=== PATIENT | male | born 1990 | race Caucasian/White ===

== ENCOUNTER 2022-03-09 10:35 | Emergency (ER) | payer BC, SELFPAY ==
--- NOTE | ~2022-03-09 | CT_ITS ---
EXAMINATION: CTA chest PE protocol DATE: 03/09/2022 12:51 INDICATION: Shortness of breath, COVID 19 positive TECHNIQUE: Computed tomography angiography (CTA) of the chest was performed with 100 mL Omnipaque-350 intravenous contrast timed to evaluate the pulmonary arteries. Coronal maximum intensity projection 3D-reconstructions were created by the technologist. The dose-length product (DLP) was 605.33 mGy-cm. Automated exposure control and iterative reconstruction technique were employed. COMPARISON: None. FINDINGS: The pulmonary arteries are moderately well-opacified. No pulmonary embolism is identified. Respiratory motion artifact slightly limits evaluation in the lower lung zones. There is subtle, patc hy bilateral airspace opacities. No pleural effusion or pneumothorax. No pathologically enlarged thor acic lymph nodes are identified. The heart size is normal. Mild bilateral gynecomastia is noted. IMPRESSION: 1. No definite pulmonary embolus identified. Sensitivity in the lower lung zones limited by respirato ry motion. 2. Subtle patchy airspace opacities of the lungs, consistent with history of COVID 19. Reviewed, dictated and finalized at location L. IMPRESSION: 1. No definite pulmonary embolus identified. Sensitivity in the lower lung zone s limited by respiratory motion. 2. Subtle patchy airspace opacities of the lungs, consistent with history of CO VID 19.
--- NOTE | ~2022-03-09 | XR_ITS ---
EXAMINATION: XR chest 1V portable INDICATION: Dry cough TECHNIQUE: Portable AP chest at 1111 hours COMPARISON: None available FINDINGS: There are minimal airspace opacities of the lung bases.. No pleural effusion or pneumothora x. The cardiomediastinal silhouette is normal. The visualized bones and soft tissues are unremarkable . IMPRESSION: 1. Minimal bibasilar airspace opacity, consistent with atelectasis versus pneumonia. Reviewed, dictated and finalized at location L. IMPRESSION: 1. Minimal bibasilar airspace opacity, consistent with atelectasis versus pneum onia.
[2022-03-09 10:37] VITALS: BP 127/76; PULSE 77; RESP 16; TEMP 36.1; O2SAT 97
--- NOTE | 2022-03-09 10:50 | ECG_ITS ---
Measurements Intervals [place] Rate: 77 P: 31 MS: 138 QRS: 0 QRSD: 95 T: 31 QT: 353 QTc: 401 Interpretive Statements SINUS RHYTHM INCOMPLETE RIGHT BUNDLE BRANCH BLOCK BORDERLINE ECG Electronically Signed On 03-09-2022 11:40:20 CDT by Jorge Proctor D.O.
--- NOTE | 2022-03-09 10:59 | ED.GENADULT ---
HPI - General Adult General Chief complaint: Upper Respiratory Infection Stated complaint: COVID positive - unable to take a deep breath Time Seen by Provider: 03/09/22 10:46 Source: RN notes reviewed History of Present Illness HPI narrative: Patient presents emergency room from home for shortness of breath. Patient states that he feels that he occasionally has to take a deep breath to breathe and that is more difficult. States that the symptoms began this morning. States that he had a positive home COVID test 3 days ago and symptom onset of approximately 6 days ago. States he has had a mild cough has been nonproductive he denies any fevers or chills states he has had a sore throat denies any abdominal pain nausea vomiting Related Data Home Medications Medication Instructions Recorded Confirmed oxybutynin chloride 10 mg 10 mg PO BID 11/29/21 tablet,extended release 24 hr Allergies Allergy/AdvReac Type Severity Reaction Status Date / Time amoxicillin Allergy Unknown Unknown Verified 03/09/22 10:36 Review of Systems Review of Systems: Gen.: Denies fevers or chills ENT: Denies congestion Respiratory: See HPI CV: Denies chest pain or palpitations GI: Denies abdominal pain nausea, emesis or diarrhea Musculoskeletal: Denies back pain or muscle pain Neuro: Denies numbness, tingling, weakness or focal weakness Skin: Denies rash Except as documented, all other systems reviewed and negative [facility] Past Medical History Medical History (Updated 03/09/22 @ 13:22 by Gurmeet Fabian DO) COVID-19 Family History Family History Father Family history of thyroid disease Family history of elevated blood lipids Grandparent Diabetes mellitus Family history of osteoporosis Hypertension Family history of elevated blood lipids Family history of cardiovascular disease Cerebrovascular accident Family history of malignant neoplasm of breast in first degree relative Mother Family history of migraine headaches Social History Social History Smoking status: Never smoker Alcohol intake: current Exam Narrative: APPEARANCE: No acute distress, nontoxic, resting in bed EYES: EOMI HEENT: Normocephalic, atraumatic, RESPIRATORY: No respiratory distress Clear to auscultation bilaterally with no rhonchi wheezing or rales. CARDIOVASCULAR: Regular rate and rhythm without murmurs rubs or gallops. ABDOMINAL: Soft, nontender, nondistended, no rebound or guarding MUSCULOSKELETAl: Moves all extremities. No clubbing, cyanosis or edema. NEURO: Awake and alert. Following commands, speech normal, no focal deficits SKIN:: Warm, dry. No rashes lesions or abrasions PSYCHIATRIC: Normal affect/mood, Course Course Emergency Course: Patient able to get up and ambulate in ED with oxygen saturation staying within normal limits Discussed with patient results of workup and diagnosis. Discussed need for follow-up with primary care, proper use of medication, and reasons to return to the emergency department. Patient understands and agrees to current treatment plan Vital Signs Vital signs: Vital Signs Temperature 96.9 F L 03/09/22 10:37 Pulse Rate 77 03/09/22 10:37 Respiratory Rate 16 03/09/22 10:37 Blood Pressure 127/76 03/09/22 10:37 Pulse Oximetry 97 03/09/22 10:37 Oxygen Delivery Room Air 03/09/22 10:37 Temperature 97.7 F 03/09/22 11:33 Pulse Rate 58 L 03/09/22 12:30 Respiratory Rate 12 03/09/22 12:30 Blood Pressure 129/76 03/09/22 12:30 Pulse Oximetry 98 03/09/22 12:30 Oxygen Delivery Room Air 03/09/22 11:28 Medical Decision Making Vital Signs Vital Signs: Vital Signs Temperature 96.9 F L 03/09/22 10:37 Pulse Rate 77 03/09/22 10:37 Respiratory Rate 16 03/09/22 10:37 Blood Pressure 127/76 03/09/22 10:37 Pulse Oximetry 97 03/09/22 10:37 Oxygen Delivery
[2022-03-09 11:04] LABS: Basophils Percent Auto 0.5 % (0.2-1.2); Eosinophils Percent Auto 0.5 % (0-4.4); Hemoglobin 15.4 g/dL (14.0-18.0); Immature Granulocyte Absolute 0.02 K/mm3 (0.00-0.031); Immature Granulocyte Percent A 0.3 % (0-0.5); Lymphocytes Absolute Auto 1.11 K/mm3 (0.9-3.2); Lymphocytes Percent Auto 18.6 % (18.3-44.2); Mean Corpuscular Hemoglobin 29.3 pg (26-34); Mean Corpuscular Volume 83.7 fl (80-100); Mean Platelet Volume 9.7 fl (7.4-10.4); Monocytes Absolute Auto 0.5 K/mm3 (0.1-0.6); Neutrophils Absolute Auto 4.3 K/mm3 (1.3-6.7); Neutrophils Percent Auto 72.1 % (45.5-73.1); Platelet Count Result 209 k/mm3 (150-375); Red Blood Count 5.26 M/mm3 (4.6-6.20); Red Cell Distribution Width 13.6 % (11.5-14.5)
[2022-03-09 11:16] LABS: Alanine Aminotransferase 53 U/L (6-50); Albumin Level 4.7 g/dL (3.5-5.1); Alkaline Phosphatase 98 U/L (38-126); Anion Gap 11 mmol/L (8-16); Aspartate Amino Transferase 42 U/L (17-59); Blood Urea Nitrogen 12 mg/dL (9-20); Calcium 9.4 mg/dL (8.4-10.2); Carbon Dioxide 22 mmol/L (22-30); Chloride 108 mmol/L (98-107); Estimated CRCL calculation 149 ml/min; Estimated Glomerular Filt Rate > 60; Glucose 110 mg/dL (65-110); Potassium 3.9 mmol/L (3.4-5.0); Sodium 141 mmol/L (137-145)
[2022-03-09 11:28] VITALS: O2SAT 99
[2022-03-09 11:33] VITALS: TEMP 36.5
[2022-03-09 12:11] LABS: D Dimer 1.23 ug/mL (<0.48)
[2022-03-09 12:30] VITALS: BP 129/76; PULSE 58; RESP 12; O2SAT 98
--- NOTE | 2022-03-09 13:31 | PC.NURSE ---
walking oxygen 96% lowest value
[2022-03-09 13:33] VITALS: BP 137/80; PULSE 76; RESP 19; O2SAT 100
[2022-03-09] MEDS: ALBUTEROL SULFATE (*SP) AEROSOL 1 PUFF 2 PUFF INHALATION (13:34)
== END 2022-03-09 13:47 | disposition home or self-care (01) ==
PROVIDERS: Emergency Provider Emergency Medicine; PCP Family Medicine
DX: U07.1 COVID-19 (principal); Z86.16 Personal history of COVID-19; I45.10 Unspecified right bundle-branch block; R91.8 Other nonspecific abnormal finding of lung field
CPT/HCPCS: 36415; 71045; 71275; 80053; 85025; 85380; 93005; 99284; A9270; Q9967

== ENCOUNTER 2022-05-29 10:43 | Outpatient (CLI) | payer BC, SELFPAY | END 2022-05-29 10:44 | disposition home or self-care (01) | LOC: ANHGOSHLAB 10:45 | PROVIDERS: PCP Family Medicine; Visit Provider Nurse Practitioner | DX: R53.83 Other fatigue (principal) | CPT/HCPCS: 36415 ==

== ENCOUNTER → 2022-05-29 10:56 | Outpatient (CLI) | payer BC, SELFPAY ==
--- NOTE | ~2022-05-29 | XR_ITS ---
EXAMINATION: XR chest 2V Exam Date/Time: 05/29/2022 10:57 CDT HISTORY: R07.1 - Chest pain on breathing Comparison: 03/09/2022. RESULT: Lines, tubes, and devices: None. Lungs and pleura: Clear. Cardiomediastinal silhouette: Stable. Other: No acute osseous or upper abdominal finding. IMPRESSION: No acute cardiopulmonary process. Reviewed, dictated and finalized at location K.
--- NOTE | ~2022-05-29 | XR_ITS ---
EXAM: XR abdomen/kub 1V DATE: 05/29/2022 11:24 HISTORY: pain in abd when taking a deep breath, no surg . COMPARISON: None available. FINDINGS: Normal bowel gas pattern. No organomegaly. Pelvic phleboliths. Regional bones and soft tis sues normal for age. IMPRESSION: Normal abdominal radiograph findings. Reviewed, dictated and finalized at location K.
== END ==
PROVIDERS: PCP Nurse Practitioner; Visit Provider Nurse Practitioner
DX: R07.1 Chest pain on breathing (principal)
CPT/HCPCS: 71046; 74018

== ENCOUNTER 2022-05-30 14:32 | Outpatient (CLI) | payer BC, SELFPAY ==
--- NOTE | ~2022-05-30 | US_ITS ---
EXAMINATION: US abdomen limited DATE: 05/30/2022 15:09 INDICATION: Elevated LFTs. Abdominal pain on inspiration. TECHNIQUE: Multiple grayscale and Doppler ultrasound images of limited portions of the abdomen were o btained. COMPARISON: CTPA 03/09/2022. FINDINGS: The visualized portions of the pancreas are normal. The liver is normal with normal echogen icity and echotexture. No surface nodularity. Normal hepatopetal flow in the main portal vein. The ga llbladder is normal with no abnormal wall thickening, pericholecystic fluid or stones. The common manisha e duct measures 4 mm. There was no sonographic Beasley sign. IMPRESSION: Normal limited abdominal ultrasound findings. Reviewed, dictated and finalized at location K.
== END 2022-05-30 14:33 | disposition home or self-care (01) ==
PROVIDERS: PCP Family Medicine; Visit Provider Nurse Practitioner
DX: R74.8 Abnormal levels of other serum enzymes (principal)
CPT/HCPCS: 76705

== ENCOUNTER 2022-06-04 08:22 | Emergency (ER) | payer BC, SELFPAY ==
--- NOTE | ~2022-06-04 | XR_ITS ---
XR chest 1V portable 06/04/2022 09:33 Indication: Fever. Cough. Procedure: AP portable chest Comparison: 05/29/2022 Findings: Heart size normal. There are bilateral interstitial infiltrates which may represent mild ed jeffery or pneumonia. No pleural effusion or pneumothorax. No acute osseous abnormality. Impression: 1: Bilateral interstitial infiltrates which may represent edema or pneumonia. Reviewed, dictated and finalized at location B. Impression: 1: Bilateral interstitial infiltrates which may represent edema or pneumonia.
[2022-06-04 08:34] VITALS: BP 133/73; PULSE 112; RESP 16; TEMP 37.7; O2SAT 98
--- NOTE | 2022-06-04 09:18 | ED.FEVER ---
HPI - Fever General Chief Complaint: Fever Stated Complaint: fever Time Seen by Provider: 06/04/22 08:35 History of Present Illness HPI Narrative: Patient states that he has been having fevers every day for the past week, he has been taking Tylenol and ibuprofen for the symptoms, but he is still feeling unwell. He had seen his doctor 6 days ago when ordered multiple blood tests, chest x-ray and abdominal x-ray that were unremarkable other than he had elevated liver enzymes, but later ultrasound showed normal liver. He is here because when he called his doctor this morning saying that he was still feeling feverish she told him to go to the emergency room. He denies any congestion though he does state that he had a very mild cough that started today. No nausea or vomiting, does occasionally have some abdominal discomfort. No recent travel. Related Data Home Medications Medication Instructions Recorded Confirmed oxybutynin chloride 10 mg 10 mg PO BID 11/29/21 05/29/22 tablet,extended release 24 hr Allergies Allergy/AdvReac Type Severity Reaction Status Date / Time amoxicillin Allergy Unknown Unknown Verified 06/04/22 08:37 Review of Systems Review of Systems: CONST: fever. HEENT: Very slight sore throat C/V: No chest pain RESP: cough GI: No nausea or vomiting : No dysuria. M/S: No joint pain. SKIN: No rash. NEURO: Very mild headache PSYCH: [No depression] [facility] Past Medical History Medical History COVID-19 Family History Family History Father Family history of thyroid disease Family history of elevated blood lipids Grandparent Diabetes mellitus Family history of osteoporosis Hypertension Family history of elevated blood lipids Family history of cardiovascular disease Cerebrovascular accident Family history of malignant neoplasm of breast in first degree relative Mother Family history of migraine headaches Social History Social History Smoking status: Never smoker Alcohol intake: current Alcohol use details: occasionally Substance use: never Substance use type: does not use Gender identity (if verbalized by the patient): Male Sexual Orientation (if Verbalized by the Patient): Straight or Heterosexual Agree to blood products: Yes Has the Lack of Transportation Kept You From Medical Appointments or From Getting Medications?: No Within the Past 12 Months, Were You Worried Whether Your Food Would Run Out Before You Got Money to Buy More?: Never True What is Your Housing Situation Today?: I Have Housing Are You Worried That in the Next 2 Months, You May Not Have Your Own Housing to Live In?: No Do You Have Trouble Paying Your Heating Or Electricity Bill?: No Do You Have Trouble Paying For Medicines?: No Are You Currently Unemployed and Looking for Work?: No Highest Level of Education Completed: Bachelor's Degree Do You Have Trouble With Childcare or the Care of a Family Member?: No Exam Narrative: EXAMINATION OF ORGAN SYSTEMS/BODY AREAS: Constitutional: Vital signs per nursing GENERAL: Slightly diaphoretic but otherwise resting comfortably and in no distress HEAD: Normal with no signs of head trauma. EYES: EOMI, conjunctiva normal ENT: Hearing grossly intact LUNGS: Nonlabored breathing. HEART: Tachycardic ABD: [Soft], [nontender to palpation] EXT: Normal range of motion SKIN: [No rashes or lesions.] NEURO: [Alert and oriented x 3. No gross focal sensory or strength deficits.] PSYCH: Normal affect Course Vital Signs Vital signs: Vital Signs Temperature 99.9 F H 06/04/22 08:34 Pulse Rate 112 H 06/04/22 08:34 Respiratory Rate 16 06/04/22 08:34 Blood Pressure 133/73 06/04/22 08:34 Pulse Oximetry 98 06/04/22 08:34 Oxygen Delivery Room Air 06/04/22 08:34 Temperature 99.6 F
[2022-06-04 09:23] LABS: Hematocrit 39.3 % (42.0-52.0); Hemoglobin 13.6 g/dL (14.0-18.0); Mean Corpuscular HGB Conc 34.6 g/dl (32-36); Mean Corpuscular Hemoglobin 29.7 pg (26-34); Mean Corpuscular Volume 85.8 fl (80-100); Mean Platelet Volume 9.8 fl (7.4-10.4); Platelet Count Result 173 k/mm3 (150-375); Red Blood Count 4.58 M/mm3 (4.6-6.20); Red Cell Distribution Width 14.2 % (11.5-14.5); White Blood Count 6.6 K/mm3 (4.5-10.0)
[2022-06-04 09:27] LABS: Add Urine Microscopic? YES; Appearance Urine Cloudy (Clear); Bacteria Urine Trace /hpf; Bilirubin Urine Negative (Negative); Blood Urine Negative (Negative); Color Urine Amber (Yellow); Glucose Urine UA Negative (Negative); Ketones Urine Negative (Negative); Leukocyte Esterase Ur Negative LEU/UL (Negative); Mucus Urine Heavy /lpf; Nitrate Urine Negative (Negative); Protein Urine 2+ mg/dL (Negative); Squamous Epithelial Cell Urine Occasional /hpf (Few)
[2022-06-04 09:31] LABS: Alanine Aminotransferase 247 U/L (6-50); Albumin Level 4.1 g/dL (3.5-5.1); Alkaline Phosphatase 148 U/L (38-126); Anion Gap 10 mmol/L (8-16); Aspartate Amino Transferase 151 U/L (17-59); Bilirubin,Total 1.2 mg/dL (0.2-1.3); Blood Urea Nitrogen 12 mg/dL (9-20); CRP 2.8 mg/dL (<1.0); Calcium 8.9 mg/dL (8.4-10.2); Carbon Dioxide 25 mmol/L (22-30); Chloride 103 mmol/L (98-107); Estimated CRCL calculation 121 ml/min; Estimated Glomerular Filt Rate > 60; Glucose 109 mg/dL (65-110); Lipase 79 U/L (23-300); Sodium 138 mmol/L (137-145)
[2022-06-04 09:32] LABS: Lactic Acid Reflex 1.1 mmol/L (0.7-2.0)
[2022-06-04 09:35] VITALS: BP 119/65; PULSE 89; RESP 15; O2SAT 98
[2022-06-04] MEDS: ACETAMINOPHEN 325 MG TABLET 650 MG PO (09:35)
[2022-06-04 09:50] LABS: Monoscreen Negative (Negative); Negative Monotest Control Negative (Negative); Positive Monotest Control Positive (Positive)
[2022-06-04 09:55] LABS: Influenza A QL RT-PCR Negative (Negative); Influenza B QL RT-PCR Negative (Negative); SARS-CoV-2 RNA PCR Negative
[2022-06-04 10:07] VITALS: TEMP 37.6
[2022-06-04 10:09] VITALS: BP 126/66; PULSE 90; RESP 16; TEMP 37.6; O2SAT 100
[2022-06-04 10:10] LABS: Atypical Lymphocytes Present; Band Neutrophils Percent 7 % (0-6); Basophils Absolute Manual 0.06 K/mm3 (0.0-0.1); Basophils Percent Manual 1 % (0-1); Eosinophils Absolute Manual 0.06 K/mm3 (0.02-0.5); Eosinophils Percent Manual 1 % (0-4); Lymphocytes Absolute Manual 2.57 K/mm3 (1.1-4.5); Monocytes Absolute Manual 0.85 K/mm3 (0.1-0.90); Monocytes Percent Manual 13 % (3-9); Neutrophils Absolute Manual 3.03 K/mm3 (1.3-6.7); Neutrophils Percent Manual 39 % (46-73); Platelet Estimate Adequate (Adequate); Total Cells Counted 100
[2022-06-04 10:11] LABS: Poikilocytosis 1+ (NORMAL); Schistocytes None Seen (NORMAL)
[2022-06-04 10:12] LABS: Anisocytosis 1+ (NORMAL)
[2022-06-04] MEDS: AZITHROMYCIN 250 MG TABLET 500 MG PO (10:33)
[2022-06-04 10:37] VITALS: BP 122/85; PULSE 98; RESP 15; O2SAT 100
[2022-06-04 11:11] VITALS: BP 119/72; PULSE 89; RESP 23; O2SAT 98
== END 2022-06-04 11:12 | disposition home or self-care (01) ==
PROVIDERS: Emergency Provider Emergency Medicine; PCP Family Medicine
DX: R50.9 Fever, unspecified (principal); J18.9 Pneumonia, unspecified organism; Z20.822 Contact with and (suspected) exposure to COVID-19
CPT/HCPCS: 36415; 71045; 80053; 81001; 83605; 83690; 85025; 86140; 86308; 87040; 87081; 87086; 87502; 87880; 96361; 96365; 99284; A9270; J0696; J7120; U0003; U0005

== ENCOUNTER 2022-06-08 09:21 | Emergency (ER) | payer BC, SELFPAY ==
--- NOTE | ~2022-06-08 | XR_ITS ---
EXAMINATION: XR chest 2V 06/08/2022 10:10 INDICATION: Antibiotics for one week. Acute onset of shortness of breath. PROCEDURE: PA and lateral views of the chest COMPARISON: 06/04/2022 FINDINGS: The lungs are clear. The cardiomediastinal silhouette is within normal limits. There are no pleural effusions. There is no pneumothorax suspected. IMPRESSION: 1: NO ACUTE CARDIOPULMONARY DISEASE. Reviewed, dictated and finalized at location B.
--- NOTE | ~2022-06-08 | CT_ITS ---
EXAMINATION: CTA chest PE protocol DATE: 06/08/2022 12:00 CDT INDICATION: Pneumonia. Elevated d-dimer. TECHNIQUE: Computed tomographic angiography (CTA) of the chest was performed with 100 mL Omnipaque-35 0 intravenous contrast. The dose-length product was 535.38 mGy-cm. Maximum intensity projection 3D-re constructions of the aorta and other arteries were constructed by the technologist on a separate work station. COMPARISON: 03/09/2022. FINDINGS: Study is technically adequate without evidence for pulmonary embolism. No significant pleur al or pericardial effusion. Heart size normal. No thoracic lymphadenopathy. There is splenomegaly. No endobronchial lesions. No peripheral airspace consolidation. No pneumothorax. IMPRESSION: 1. No acute cardiopulmonary disease. No evidence for pulmonary embolism. 2: Splenomegaly. Reviewed, dictated and finalized at location B.
[2022-06-08 09:32] VITALS: BP 123/71; PULSE 92; RESP 17; TEMP 36.6; O2SAT 99
[2022-06-08 09:35] VITALS: PULSE 92; RESP 17; O2SAT 100
--- NOTE | 2022-06-08 09:52 | ED.FEVER ---
HPI - Fever General Chief Complaint: Fever Stated Complaint: fever, pneumonia Time Seen by Provider: 06/08/22 09:26 History of Present Illness HPI Narrative: 32-year-old male presents to the emergency room for evaluation of unresolved shortness of breath, fever for 6 days. Patient states he was seen here in the emergency room on Saturday was diagnosed with pneumonia. Reports completing a course of Z-Young, and is continuing to take prescribed Bactrim. States that he contacted his PCP earlier today, and was told to come to the emergency room to have them figured out . Presently, patient is hemodynamically stable and in no distress. Patient is afebrile. Patient also states that he was diagnosed with COVID in February, after having his full complement of COVID shots. Related Data Home Medications Medication Instructions Recorded Confirmed oxybutynin chloride 10 mg 10 mg PO BID 11/29/21 05/29/22 tablet,extended release 24 hr Allergies Allergy/AdvReac Type Severity Reaction Status Date / Time amoxicillin Allergy Unknown Unknown Verified 06/08/22 09:36 Review of Systems Review of Systems: CONSTITUTIONAL: Denies fever, chills, or sweats. EYES: Denies visual changes, redness, or discharge. ENT: Denies rhinorrhea, congestion, sore throat, or otalgia. CARDIOVASCULAR: Denies chest pain, palpitations, or edema. RESPIRATORY: Reports dyspnea GASTROINTESTINAL: Denies abdominal pain, nausea, vomiting, or diarrhea. GENITOURINARY: Denies dysuria or hematuria. SKIN: Denies rash or itching. MUSCULOSKELETAL: Denies back pain, joint pain, or myalgia. NEUROLOGIC: Denies headache, numbness, dizziness, or weakness. PSYCHIATRIC: Denies anxiety or depression. [facility] Past Medical History Medical History COVID-19 Family History Family History Father Family history of thyroid disease Family history of elevated blood lipids Grandparent Diabetes mellitus Family history of osteoporosis Hypertension Family history of elevated blood lipids Family history of cardiovascular disease Cerebrovascular accident Family history of malignant neoplasm of breast in first degree relative Mother Family history of migraine headaches Social History Social History Smoking status: Never smoker Alcohol intake: current Alcohol use details: occasionally Substance use: never Substance use type: does not use Has the Lack of Transportation Kept You From Medical Appointments or From Getting Medications?: No Within the Past 12 Months, Were You Worried Whether Your Food Would Run Out Before You Got Money to Buy More?: Never True What is Your Housing Situation Today?: I Have Housing Are You Worried That in the Next 2 Months, You May Not Have Your Own Housing to Live In?: No Do You Have Trouble Paying Your Heating Or Electricity Bill?: No Do You Have Trouble Paying For Medicines?: No Are You Currently Unemployed and Looking for Work?: No Highest Level of Education Completed: Bachelor's Degree Do You Have Trouble With Childcare or the Care of a Family Member?: No Gender identity (if verbalized by the patient): Male Sexual Orientation (if Verbalized by the Patient): Straight or Heterosexual Agree to blood products: Yes Exam Narrative: GENERAL: Well-appearing, well-nourished, no physical limitations, and in no acute distress. HEAD: Normocephalic, atraumatic. EYES: Conjunctivae normal, PERRLA and EOMI. CHEST: Clear to auscultation. No respiratory distress. No wheezes rales or rhonchi. HEART: Regular rate and rhythm. No murmur heard. Normal peripheral pulses. EXTREMITIES: Normal range of motion. No edema. No clubbing or cyanosis SKIN: Warm, dry, no rash. No noted wounds NEURO: No focal deficits. Alert and oriented x3. MAEW. CN's II-XI intact bilaterally, normal gait PS
--- NOTE | 2022-06-08 10:06 | PC.NURSE ---
Pt to XRAY via stretcher at this time.
[2022-06-08 10:19] LABS: Influenza A QL RT-PCR Negative (Negative); Influenza B QL RT-PCR Negative (Negative); SARS-CoV-2 RNA PCR Negative
[2022-06-08 10:32] LABS: Anion Gap 9 mmol/L (8-16); Blood Urea Nitrogen 8 mg/dL (9-20); Calcium 8.5 mg/dL (8.4-10.2); Carbon Dioxide 25 mmol/L (22-30); Chloride 103 mmol/L (98-107); Estimated CRCL calculation 121 ml/min; Estimated Glomerular Filt Rate > 60; Glucose 90 mg/dL (65-110); Potassium 4.1 mmol/L (3.4-5.0); Sodium 137 mmol/L (137-145)
[2022-06-08 10:44] LABS: D Dimer 1.17 ug/mL (<0.48)
[2022-06-08 11:06] LABS: Hematocrit 38.8 % (42.0-52.0); Hemoglobin 12.6 g/dL (14.0-18.0); Immature Platelet Fraction Pct 4.7 % (0.9-11.2); Mean Corpuscular HGB Conc 32.5 g/dl (32-36); Mean Corpuscular Hemoglobin 28.9 pg (26-34); Mean Platelet Volume 10.8 fl (7.4-10.4); Platelet Count Result 197 k/mm3 (150-375); Red Blood Count 4.36 M/mm3 (4.6-6.20); Red Cell Distribution Width 14.9 % (11.5-14.5); White Blood Count 8.9 K/mm3 (4.5-10.0)
[2022-06-08 11:12] VITALS: BP 114/77; PULSE 83; RESP 18; O2SAT 100
[2022-06-08 11:20] LABS: Anisocytosis 2+ (NORMAL); Band Neutrophils Percent 9 % (0-6); Eosinophils Absolute Manual 0.26 K/mm3 (0.02-0.5); Eosinophils Percent Manual 3 % (0-4); Lymphocytes Absolute Manual 5.42 K/mm3 (1.1-4.5); Macrocytosis 1+ (NORMAL); Monocytes Absolute Manual 0.53 K/mm3 (0.1-0.90); Monocytes Percent Manual 6 % (3-9); Neutrophils Absolute Manual 2.67 K/mm3 (1.3-6.7); Neutrophils Percent Manual 21 % (46-73); Platelet Estimate Adequate (Adequate); Total Cells Counted 100
[2022-06-08 11:21] LABS: Atypical Lymphocytes Present; Schistocytes None Seen (NORMAL); Smudge Cells PRESENT
[2022-06-08 11:46] LABS: Lactic Acid Reflex 1.6 mmol/L (0.7-2.0)
[2022-06-08 12:39] VITALS: BP 112/73; PULSE 84; RESP 18; TEMP 36.5; O2SAT 99
[2022-06-08] MEDS: methylPREDNISolone SOD SUCC 125 MG VIAL IV PUSH (12:39)
== END 2022-06-08 12:46 | disposition home or self-care (01) ==
PROVIDERS: Emergency Provider Nurse Practitioner Family; PCP Family Medicine
DX: R06.02 Shortness of breath (principal); Z20.822 Contact with and (suspected) exposure to COVID-19
CPT/HCPCS: 36415; 71046; 71275; 80048; 83605; 85025; 85055; 85380; 87502; 96374; 99284; J2930; Q9967; U0003; U0005

== ENCOUNTER → 2022-06-18 10:52 | Outpatient (CLI) | payer BC, SELFPAY ==
--- NOTE | ~2022-06-18 | US_ITS ---
EXAMINATION: US soft tissue UE LT DATE: 06/18/2022 11:33 INDICATION: Localized swelling, mass and lump at the anterior left forearm. TECHNIQUE: Multiple grayscale and Doppler ultrasound images of the region of concern at the anterior left forearm. were obtained. COMPARISON: None FINDINGS: 12 x 10 x 7 mm fluid collection with irregular margins interdigitating with the surrounding lobular s ubcutaneous fat. The lesion abuts the underlying superficial muscular fascia and extends to within 1 mm of the skin surface. The underlying musculature is unremarkable. IMPRESSION: 1. Nonspecific nonorganized appearing 12 x 10 x 7 mm fluid collection within the subcutaneous fat at the region of concern. Differential would include hematoma, phlegmonous change in the setting of infe ction or reactive subcutaneous edema related to other inflammatory process. Reviewed, dictated and finalized at location A. IFE IMPRESSION: 1. Nonspecific nonorganized appearing 12 x 10 x 7 mm fluid collection within th e subcutaneous fat at the region of concern. Differential would include hematom a, phlegmonous change in the setting of infection or reactive subcutaneous sam a related to other inflammatory process.
== END ==
PROVIDERS: PCP Nurse Practitioner; Visit Provider Nurse Practitioner
DX: R22.32 Localized swelling, mass and lump, left upper limb (principal)
CPT/HCPCS: 76882

== ENCOUNTER 2024-04-17 14:01 | Emergency (ER) | payer BC, SELFPAY ==
[2024-04-17] VITALS (11 sets, daily range): BP systolic 90–116; BP diastolic 51–69; PULSE 65–97; RESP 12–18; TEMP 36.6; O2SAT 96–100
--- NOTE | 2024-04-17 14:49 | ED.NAVMDI ---
HPI - Nausea/Vomiting/Diarrhea General Chief complaint: Nausea/Vomiting/Diarrhea <Anju Mcghee PA-C - Last Filed: 04/18/24 14:20> Stated complaint: Diarrhea, vomiting, dizziness <Anju Mcghee PA-C - Last Filed: 04/18/24 14:20> Time Seen by Provider: 04/17/24 14:49 <Anju Mcghee PA-C - Last Filed: 04/18/24 14:20> Focused HPI: This is a 34-year-old male that presents to the emergency department for nausea, vomiting and diarrhea. Reports his son has recently been sick with a similar illness. He is not able to keep anything down which prompted him to be seen in the ER. GENERAL: Well-appearing, well-nourished, and in no acute distress. HEAD: Normocephalic, atraumatic. CHEST: Clear to auscultation. ?No respiratory distress. HEART: Regular rate and rhythm.? NEURO: ?Alert and oriented x3. Patient screened in triage and initial orders placed.? ?Additional care and disposition to be based upon?diagnostic testing and treatment. <Anju Mcghee PA-C - Last Filed: 04/18/24 14:20> History of Present Illness HPI Narrative: Agree with the above with the following additions/corrections: Patient's son was recently ill with an episode of vomiting and some fever though did not have diarrhea. Patient has had diarrhea, vomiting, dizziness. He also felt chilled and hot and had temperature of 99? at home, borderline febrile. No recent antibiotics. He denies any abdominal pain. He was on some thrush medication a few weeks ago. he does have chronic urological issues with overactive bladder for which he is on Kaylee test the. He does not routinely follow with a urologist although he used to. He denies any hematuria. His overactive bladder causes him to have urinary urgency and frequency. <Jacque Chiang MD - Last Filed: 04/18/24 09:29> Related Data Allergies/Adverse reactions: Allergies Allergy/AdvReac Type Severity Reaction Status Date / Time amoxicillin Allergy Unknown Unknown Verified 03/16/24 10:17 <Anju Mcghee PA-C - Last Filed: 04/18/24 14:20> Review of Systems Review of Systems: All systems reviewed & are unremarkable except as noted in HPI and below <Anju Mcghee PA-C - Last Filed: 04/18/24 14:20> [facility] Past Medical History Medical History: Medical History COVID-19 Overactive bladder <Anju Mcghee PA-C - Last Filed: 04/18/24 14:20> Family History Family History: Family History Father Family history of thyroid disease Family history of elevated blood lipids Grandparent Diabetes mellitus Family history of osteoporosis Hypertension Family history of elevated blood lipids Family history of cardiovascular disease Cerebrovascular accident Family history of malignant neoplasm of breast in first degree relative Mother Family history of migraine headaches <Anju Mcghee PA-C - Last Filed: 04/18/24 14:20> Social History Social History: Social History (Updated 04/18/24 @ 09:25 by Jacque Chiang MD) Smoking status: Never smoker Alcohol intake: current Alcohol use details: occasionally Substance use: never Substance use type: does not use Lack of Transportation: No Lack of Food: Never True Current Housing: I Have Housing Concerned About Future Housing: No Difficulty Paying Gas/Electric Bills: No Difficulty Paying for Meds: No Currently Unemployed: No Education: Bachelor's Degree Difficulty w/ Childcare or Family Care: No Living arrangements: with family Occupation/Education: occupation 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
[2024-04-17] MEDS: SODIUM CHLORIDE 0.9% IV 1,000 ML 999 ML IV CONT (15:05)
[2024-04-17] MEDS: FAMOTIDINE 20 MG/2 ML VIAL IV PUSH (15:05)
[2024-04-17] MEDS: ONDANSETRON INJ 4 MG/2 ML VIAL IV PUSH (15:05)
[2024-04-17 15:14] LABS: Basophils Absolute Auto 0.1 K/mm3 (0.0-0.1); Basophils Percent Auto 0.4 % (0.2-1.2); Eosinophils Percent Auto 0.2 % (0-4.4); Hematocrit 42.8 % (42.0-52.0); Hemoglobin 15.6 g/dL (14.0-18.0); Immature Granulocyte Absolute 0.08 K/mm3 (0.00-0.031); Immature Granulocyte Percent A 0.6 % (0-0.5); Lymphocytes Absolute Auto 0.72 K/mm3 (0.9-3.2); Lymphocytes Percent Auto 5.5 % (18.3-44.2); Mean Corpuscular HGB Conc 36.4 g/dl (32-36); Mean Corpuscular Hemoglobin 30.1 pg (26-34); Mean Corpuscular Volume 82.5 fl (80-100); Mean Platelet Volume 10.2 fl (7.4-10.4); Monocytes Absolute Auto 0.7 K/mm3 (0.1-0.6); Monocytes Percent Auto 5.5 % (2.6-8.5); Neutrophils Absolute Auto 11.4 K/mm3 (1.3-6.7); Neutrophils Percent Auto 87.8 % (45.5-73.1); Platelet Count Result 251 k/mm3 (150-375); Red Blood Count 5.19 M/mm3 (4.6-6.20); Red Cell Distribution Width 13.7 % (11.5-14.5)
[2024-04-17 15:31] LABS: Alanine Aminotransferase 29 U/L (6-50); Albumin Level 4.8 g/dL (3.5-5.1); Alkaline Phosphatase 97 U/L (38-126); Anion Gap 16 mmol/L (4-12); Aspartate Amino Transferase 30 U/L (17-59); Bilirubin,Total 1.3 mg/dL (0.2-1.3); Blood Urea Nitrogen 22 mg/dL (9-20); Calcium 9.7 mg/dL (8.4-10.2); Carbon Dioxide 22 mmol/L (22-30); Chloride 101 mmol/L (98-107); Estimated CRCL calculation 85 ml/min; Estimated Glomerular Filt Rate > 60; Glucose 126 mg/dL (65-110); Lipase 76 U/L (23-300); Potassium 4.1 mmol/L (3.4-5.0); Sodium 139 mmol/L (137-145)
[2024-04-17 16:04] LABS: Add Urine Microscopic? YES; Appearance Urine Cloudy (Clear); Bacteria Urine None Seen /hpf; Bilirubin Urine 1+ (Negative); Blood Urine Negative (Negative); Color Urine Dark Yellow (Yellow); Glucose Urine UA Negative (Negative); Hyaline Casts Urine Present /lpf; Ketones Urine 1+ mg/dL (Negative); Leukocyte Esterase Ur 1+ LEU/UL (Negative); Nitrate Urine Negative (Negative); Non Pathogenic Casts >20; Protein Urine 3+ mg/dL (Negative); Specific Grav Ur 1.032 (1.001-1.035); Squamous Epithelial Cell Urine Occasional /hpf (Few); WBC Urine 0-5 /hpf (0-3); pH Urine 7.5 (5.0-9.0)
[2024-04-17 18:13] LABS: Magnesium 1.7 mg/dL (1.6-2.3)
[2024-04-17] MEDS: DEXTROSE 5%/0.9% SOD CHL 1,000 ML 250 ML IV CONT (18:28)
[2024-04-17 18:54] LABS: Influenza A QL RT-PCR Negative (Negative); Influenza B QL RT-PCR Negative (Negative); SARS-CoV-2 RNA PCR Negative (Negative)
--- NOTE | 2024-04-17 18:59 | PC.NURSE ---
Assumed care of pt from BENITEZ Drake at this time.
[2024-04-17 19:31] LABS: Toxigenic C. Diff NEGATIVE (NEGATIVE)
== END 2024-04-17 20:15 | disposition home or self-care (01) ==
PROVIDERS: Physician Assistant; Emergency Provider Student in an Organized Health Care Education/Training Program; PCP Family Medicine
DX: K52.9 Noninfective gastroenteritis and colitis, unspecified (principal); D72.829 Elevated white blood cell count, unspecified; Z20.822 Contact with and (suspected) exposure to COVID-19
CPT/HCPCS: 36415; 80053; 81001; 83690; 83735; 85025; 87086; 87493; 87636; 96361; 96374; 96375; 99284; J2405; J7030; J7042